=== PATIENT | male | born 1945 | race Caucasian/White ===

== ENCOUNTER 2017-09-19 07:50 | Inpatient (IN) | payer OTHER ==
[2017-09-19 08:47] VITALS: BMI 30.8
[2017-09-19] MEDS ORDERED: oxyCODONE HCL 10 MG SUSTAINED ACTING TABLET ONE (08:56)
[2017-09-19] MEDS ORDERED: CELECOXIB 200 MG CAPSULE ONE (08:57)
[2017-09-19] MEDS ORDERED: MIDAZOLAM HCL 2 MG/2 ML SINGLE DOSE VIAL ONE ×2 (09:36→11:27)
[2017-09-19] MEDS ORDERED: DEXAMETHASONE SOD PHOSPHATE/PF 10 MG/ML SDV ONE (09:36)
[2017-09-19] MEDS ORDERED: ROPIVACAINE HCL 0.5% 30ML VIAL ONE (09:37)
[2017-09-19] MEDS ORDERED: SODIUM CHLORIDE 0.9% P/F 10 ML VIAL IJ ONE (09:37)
[2017-09-19] MEDS ORDERED: PROPOFOL 20 ML ONE ×5 (10:26→13:47)
[2017-09-19] MEDS ORDERED: BUPIVACAINE HCL/PF 0.5% (5MG/ML) 10 ML VIAL ONE (10:27)
[2017-09-19] MEDS ORDERED: ceFAZolin SODIUM 1 GM VIAL ONE ×3 (13:35)
[2017-09-19] MEDS ORDERED: TRANEXAMIC ACID 1000 MG/10 ML VIAL ONE ×2 (13:46)
[2017-09-19] MEDS ORDERED: GUM MASTIC/STORAX/MSAL/ALCOHOL 1 DRP DROPSBTL MC ONE (13:52)
[2017-09-19] MEDS ORDERED: ONDANSETRON 4 MG/2 ML VIAL IVPUSH PRN (14:19)
[2017-09-19] MEDS ORDERED: MAG HYDROX/AL HYDROX/SIMETH 30 ML UNIT-DOSE CUP PO PRN (14:19)
[2017-09-19] MEDS ORDERED: MAGNESIUM HYDROX 2400MG/30ML ORAL SUSPENSION 30 ML CUP PO PRN (14:19)
[2017-09-19] MEDS ORDERED: LACTATED RINGERS SOLUTION 1,000 ML IV SCH (14:30)
[2017-09-19] MEDS ORDERED: ACETAMINOPHEN 325 MG TABLET (FP) ONE (15:06)
[2017-09-19] MEDS ORDERED: oxyCODONE HCL 5 MG TABLET ONE ×2 (15:34→19:41)
--- NOTE | 2017-09-19 16:57 | OP ---
Operative Note - Note: Operative Date: 09/19/17 Pre-Operative Diagnosis: Right knee DJD Operation: Right total knee replacement Implants: Shonda Triathlong Cemented CR. Femur - 3. Tibia - 4. Poly - 11mm ( CS). Patella - 27mm symmetric Post-Operative Diagnosis: Same as Pre-op Surgeon: Azam Richmond Utility System Repairer: Johnie Richmond Anesthesia: Spinal Operative Report Dictated: Yes
[2017-09-19] MEDS: CEFAZOLIN 2 GM/D5W 2 GM/50 ML ML IVPB SCH (18:06)
[2017-09-19] MEDS ORDERED: oxyCODONE HCL 5 MG TABLET PO PRN (19:55)
[2017-09-19] MEDS: oxyCODONE HCL 10 MG SUSTAINED ACTING TABLET PO SCH (21:36)
[2017-09-19] MEDS: SENNOSIDES/DOCUSATE COMBO (SENNA PLUS) TABLET (UD) PO SCH (21:37)
[2017-09-19] MEDS: ASPIRIN 325 MG TABLET PO SCH (21:50)
[2017-09-19] MEDS ORDERED: VANCOMYCIN 1,250 MG in DEXTROSE 5%-WATER - 250 ML IVPB ONE (22:00)
--- NOTE | 2017-09-20 00:01 | CONSULT ---
Consultation: REQUESTING PROVIDER: Dr. Richmond CONSULT REQUEST: We have been asked to medically evaluate this patient for ( Medical Management). HISTORY OF PRESENT ILLNESS: This is a 72 y/o man with a past medical history of HTN, DM, GERD, OA, BPH, Retinopathy. s/p R-TKR POD #0. Received at bedside AAOx3 who reports pain to R- knee 02/28. Patient reports having surgery for severe OA. Patient reports numbness to the medial aspect of his foot. Patient reports passing flatulence and voiding. Patient reports tolerating PO fluids and solids without N/V. Patient denies fever, chills, cough, SOB, CP, AP Past Medical History: See HPI Past Surgical History: Left Wrist ORIF Left Retina sx Cataract Removal REVIEW OF SYSTEMS: CONSTITUTIONAL: Absent: fever, chills, diaphoresis, generalized weakness, malaise, loss of appetite, weight change HEENT: Absent: rhinorrhea, nasal congestion, throat pain, throat swelling, difficulty swallowing, mouth swelling, ear pain, eye pain, visual changes CARDIOVASCULAR: Absent: chest pain, syncope, palpitations, irregular heart rate, lightheadedness , peripheral edema RESPIRATORY: Absent: cough, shortness of breath, dyspnea with exertion, orthopnea, wheezing, stridor, hemoptysis GASTROINTESTINAL: Absent: abdominal pain, abdominal distension, nausea, vomiting, diarrhea, constipation, melena, hematochezia GENITOURINARY: Absent: dysuria, frequency, urgency, hesitancy, hematuria, flank pain, genital pain MUSCULOSKELETAL: right knee pain Absent: myalgia, arthralgia, joint swelling, back pain, neck pain SKIN: Absent: rash, itching, pallor HEMATOLOGIC/IMMUNOLOGIC: Absent: easy bleeding, easy bruising, lymphadenopathy, frequent infections ENDOCRINE: Absent: unexplained weight gain, unexplained weight loss, heat intolerance, cold intolerance NEUROLOGIC: paresthesias Absent: headache, focal weakness, dizziness, unsteady gait, seizure, mental status changes, bladder or bowel incontinence PSYCHIATRIC: Absent: anxiety, depression, suicidal or homicidal ideation, hallucinations. PHYSICAL EXAMINATION Vital Signs - 24 hr 09/19/17 09/19/17 09/19/17 08:12 08:35 08:47 Temperature 98.5 F 98.5 F Pulse Rate 100 H 100 H Respiratory 19 19 Rate Blood Pressure 136/87 136/87 O2 Sat by Pulse 97 Oximetry (%) 09/19/17 09/19/17 09/19/17 14:25 14:30 14:35 Temperature 98 F Pulse Rate 79 80 85 Respiratory 16 18 18 Rate Blood Pressure 119/76 121/68 110/70 O2 Sat by Pulse 98 97 97 Oximetry (%) 09/19/17 09/19/17 09/19/17 14:40 14:55 15:10 Temperature 98 F Pulse Rate 86 86 86 Respiratory 18 18 20 Rate Blood Pressure 111/72 110/70 120/68 O2 Sat by Pulse 97 97 96 Oximetry (%) 09/19/17 09/19/17 09/19/17 15:25 15:34 17:43 Temperature 97.7 F Pulse Rate 86 86 70 Respiratory 20 20 18 Rate Blood Pressure 118/68 116/62 131/67 O2 Sat by Pulse 96 96 100 Oximetry (%) 09/19/17 09/19/17 20:12 22:00 Temperature 97.8 F Pulse Rate 74 Respiratory 18 18 Rate Blood Pressure 121/62 O2 Sat by Pulse 100 Oximetry (%) GENERAL: Obese, awake, alert, and fully oriented, in no acute distress. HEAD: Normal with no signs of trauma. EYES: Pupils equal, round and reactive to light, extraocular movements intact, sclera anicteric, conjunctiva clear. No lid lag. EARS, NOSE, THROAT: Ears normal, nares patent, oropharynx clear without exudates. Moist mucous membranes. NECK: Normal range of motion, supple without lymphadenopathy, JVD, or masses. LUNGS: Breath sounds equal, diminished to bases. No wheezes, and no crackles. No accessory muscle use. HEART: Regular rate and rhythm, normal S1 and S2 without murmur, rub or gallop. ABDOMEN: Soft, nontender, not distended, normoactive bowel sounds, no guarding, no rebound, no masses. No hepatomegaly or splenomegaly. MUSCULOSKELETAL: Normal range of motion at RUE, LUE, LLE joints. No bony deformities. No CVA tenderness. R-knee tenderness, +surgical dressing, dry and intact,+ icepack UPPER EXTREMITIES: 2+ pulses, warm, well-perfused. No cyanosis. No clubbing. Cap refill <2 seconds. No peripheral edema. LOWER EXTREMITIES: 2+ pulses, warm, well-perfused. No calf tenderness. No peripheral edema. NEUROLOGICAL: Cranial nerves II-XII intact. Normal speech. Gait not observed. + decreased sensation to R- Great toe/medial foot PSYCHIATRIC: Cooperative. Good eye contact. Appropriate mood and affect. SKIN: Warm, dry, normal turgor, no rashes or lesions noted. Laboratory Results - last 24 hr 09/19/17 09/19/17 08:25 14:28 POC Glucometer 146 135 Active Medications Generic Name Dose Route Start Last Admin Trade Name Freq PRN Reason Stop Dose Admin Al Hydroxide/Mg Hydroxide 30 ml 09/19/17 14:19 Mylanta Oral Suspension - PO Q4H PRN DYSPEPSIA Aspirin 325 mg 09/19/17 22:00 09/19/17 21:50 Asa - PO 325 mg BID JESÚS Administration Fentanyl 50 mcg 09/19/17 15:09 Sublimaze Injection - IVPUSH [id number] PRN PAIN Hydrochlorothiazide 12.5 mg 09/20/17 10:00 Hctz - PO DAILY JESÚS Cefazolin Sodium/Dextrose 2 gm in 50 mls @ 100 mls/hr 09/19/17 18:00 18:06 Ancef 2 Gm Premixed Ivpb - IVPB 09/20/17 02:29 100 mls/hr Q8H-IV JESÚS Administration Lactated Ringer's 1,000 mls @ 125 mls/hr 09/19/17 14:30 09/19/17 18:06 Lactated Ringers Solution IV 09/20/17 06:00 Not Given ASDIR JESÚS Magnesium Hydroxide 30 ml 09/19/17 14:19 Milk Of Magnesia - PO PRN PRN CONSTIPATION Multivitamins/Minerals/Vitamin C 1 tab 09/20/17 10:00 Tab-A-Vit - PO DAILY JESÚS Ondansetron HCl 4 mg 09/19/17 14:19 Zofran Injection IVPUSH Q6H PRN NAUSEA Oxycodone HCl 5 mg 09/19/17 19:55 Roxicodone - PO Q4H PRN Oxycodone HCl 10 mg 09/19/17 19:56 Roxicodone - PO Q4H PRN Oxycodone HCl 10 mg 09/19/17 22:00 09/19/17 21:36 Oxycontin - PO 10 mg BID JESÚS Administration Pantoprazole Sodium 40 mg 09/20/17 10:00 Protonix - PO DAILY JESÚS Senna/Docusate Sodium 2 tablet 09/19/17 22:00 09/19/17 21:37 Pericolace - PO 2 tablet BID JESÚS Administration Sitagliptin Phosphate 100 mg 09/20/17 07:00 Januvia - PO DAILY@0700 JESÚS Valsartan 320 mg 09/20/17 10:00 Diovan - PO DAILY [facility] ASSESSMENT/PLAN: This is a 72 y/o with a PMHx of: HTN, DM, COPD, GERD, OA, BPH. s/p R-TKR, POD #0 1. Continue with ortho regimen 2. PT 3. Incentive Spirometry 4. Monitor CBC, BMP in am 5. DM- BGMs, continue Januvia 6. HTN- monitor BP, continue Diovan, HCTZ, monitor renal function 7. COPD- O2 prn, Duoneb prn, Spo2 BID 8. GERD- Continue PPI 9. BPH- Continue Flomax 10.DVT/PPI Prophylaxis- Continue Asa, Protonix Dispo: We will continue to follow the patient. Thank you for this consultative opportunity. Problem List - Problems (1) Status post right knee replacement Code(s): Z96.651 - PRESENCE OF RIGHT ARTIFICIAL KNEE JOINT (2) Diabetes mellitus Code(s): E11.9 - TYPE 2 DIABETES MELLITUS WITHOUT COMPLICATIONS (3) HTN (hypertension) Code(s): I10 - ESSENTIAL (PRIMARY) HYPERTENSION (4) GERD (gastroesophageal reflux disease) Code(s): K21.9 - GASTRO-ESOPHAGEAL REFLUX DISEASE WITHOUT ESOPHAGITIS (5) BPH (benign prostatic hyperplasia) Code(s): N40.0 - BENIGN PROSTATIC HYPERPLASIA WITHOUT LOWER URINRY TRACT SYMP (6) Osteoarthritis Code(s): M19.90 - UNSPECIFIED OSTEOARTHRITIS, UNSPECIFIED SITE (7) DVT prophylaxis Code(s): JMX6252 - Visit type - Emergency Visit Emergency Visit: Yes ED Registration Date: 09/19/17 Care time: The patient presented to the Emergency Department on the above date and was hospitalized for further evaluation of their emergent condition. - New Patient This patient is new to me today: Yes Date on this admission: 09/19/17 - Critical Care Critical Care patient: No
[2017-09-20] MEDS: oxyCODONE HCL 5 MG TABLET PO PRN ×3 (02:21→16:42)
[2017-09-20] MEDS: CEFAZOLIN 2 GM/D5W 2 GM/50 ML ML IVPB SCH (02:23)
[2017-09-20] MEDS: sitaGLIPtin PHOSPHATE 50 MG TABLET PO SCH (06:13)
[2017-09-20 08:28] LABS: MCH 29.9 pg (25.7-33.7); MCHC 33.5 g/dl (32.0-35.9); MEAN PLT VOLUME 11.3 fl (7.5-11.1); PLATELET COUNT 168 K/MM3 (134-434); RDW 13.3 % (11.9-15.9); WHITE BLOOD COUNT 17.8 K/mm3 (4.0-10.8)
[2017-09-20 08:32] LABS: ANION GAP 8 (8-16); CALCIUM 8.8 mg/dl (8.4-10.2); CO2 29 mmol/L (22-28); GLUCOSE,RANDOM 186 mg/dl (74-106)
[2017-09-20] MEDS: ASPIRIN 325 MG TABLET PO SCH ×2 (09:08→21:12)
[2017-09-20] MEDS: MULTIVITAMINS (DAILY MVI) TABLET (FP) PO SCH (09:08)
[2017-09-20] MEDS: VALSARTAN 160 MG TABLET (UD) PO SCH (09:09)
[2017-09-20] MEDS: SENNOSIDES/DOCUSATE COMBO (SENNA PLUS) TABLET (UD) PO SCH ×2 (09:09→21:12)
[2017-09-20] MEDS: oxyCODONE HCL 10 MG SUSTAINED ACTING TABLET PO SCH ×2 (09:10→21:12)
[2017-09-20] MEDS: HYDROCHLOROTHIAZIDE 12.5 MG CAPSULE (FP) PO SCH (09:10)
[2017-09-20] MEDS: PANTOPRAZOLE 40 MG TABLET (FP) PO SCH (09:11)
[2017-09-20] MEDS ORDERED: sitaGLIPtin PHOSPHATE 100 MG TABLET (FP) PO SCH (10:00)
[2017-09-20] MEDS ORDERED: PATIENT'S OWN MEDICATION (NON-FORMULARY) (Valsartan/Hydrochlorothiazide [Valsartan-Hctz 32 PO SCH (10:00)
--- NOTE | 2017-09-20 10:33 | PN ---
Physical Exam: SUBJECTIVE: Patient seen and examined, ambulatory at bedside with walker, denies any chest pain or shortness of breath, reports minimal pain. OBJECTIVE: Patient is a 72 y/o man with a past medical history of HTN, DM, GERD , OA, BPH, Retinopathy. s/p R-TKR POD #1, Dr Richmond, spinal anesthesia Vital Signs Period Temp Pulse Resp BP Sys/Mariscal Pulse Ox Last 24 Hr 97.4 F-98 F 67-86 16-20 110-133/62-76 96-100 GENERAL: The patient is awake, alert, and fully oriented, in no acute distress. HEAD: Normal with no signs of trauma. EYES: PERRL, extraocular movements intact, sclera anicteric, conjunctiva clear. No ptosis. ENT: Ears normal, nares patent, oropharynx clear without exudates, moist mucous membranes. NECK: Trachea midline, full range of motion, supple. LUNGS: Breath sounds equal, clear to auscultation bilaterally, no wheezes, no crackles, no accessory muscle use. HEART: Regular rate and rhythm, S1, S2 without murmur, rub or gallop. ABDOMEN: Soft, nontender, nondistended, normoactive bowel sounds, no guarding, no rebound, no hepatosplenomegaly, no masses. EXTREMITIES: 2+ pulses, warm, well-perfused, no edema. RIGHT LOWER EXTREMITY: cdi, scd/trinity, less than 3 second capillary refill, + 3 pedal pulse NEUROLOGICAL: Cranial nerves II through XII grossly intact. Normal speech, gait not observed. PSYCH: Normal mood, normal affect. SKIN: Warm, dry, normal turgor, no rashes or lesions noted Laboratory Results - last 24 hr 09/19/17 09/20/17 09/20/17 14:28 06:16 07:00 WBC 17.8 H RBC 4.54 Hgb 13.6 Hct 40.4 MCV 89.0 MCH 29.9 MCHC 33.5 RDW 13.3 Plt Count 168 MPV 11.3 H Sodium Potassium Chloride Carbon Dioxide Anion Gap BUN Creatinine POC Glucometer 135 178 Random Glucose Calcium 09/20/17 07:00 WBC RBC Hgb Hct MCV MCH MCHC RDW Plt Count MPV Sodium 132 L Potassium 4.6 Chloride 95 L Carbon Dioxide 29 H Anion Gap 8 BUN 14 Creatinine 1.0 POC Glucometer Random Glucose 186 H Calcium 8.8 Active Medications Generic Name Dose Route Start Last Admin Trade Name Freq PRN Reason Stop Dose Admin Al Hydroxide/Mg Hydroxide 30 ml 09/19/17 14:19 Mylanta Oral Suspension - PO Q4H PRN DYSPEPSIA Aspirin 325 mg 09/19/17 22:00 09/20/17 09:08 Asa - PO 325 mg BID JESÚS Administration Fentanyl 50 mcg 09/19/17 15:09 Sublimaze Injection - IVPUSH [id number] PRN PAIN Hydrochlorothiazide 12.5 mg 09/20/17 10:00 09/20/17 09:10 Hctz - PO 12.5 mg DAILY JESÚS Administration Magnesium Hydroxide 30 ml 09/19/17 14:19 Milk Of Magnesia - PO PRN PRN CONSTIPATION Multivitamins/Minerals/Vitamin C 1 tab 09/20/17 10:00 09/20/17 09:08 Tab-A-Vit - PO 1 tab DAILY JESÚS Administration Non-Formulary Medication 500 mg 09/21/17 10:00 Metformin Hcl [Metformin Hcl Er] PO DAILY [facility] Ondansetron HCl 4 mg 09/19/17 14:19 Zofran Injection IVPUSH Q6H PRN NAUSEA Oxycodone HCl 5 mg 09/19/17 19:55 Roxicodone - PO Q4H PRN Oxycodone HCl 10 mg 09/19/17 19:56 09/20/17 06:14 Roxicodone - PO 10 mg Q4H PRN Administration Oxycodone HCl 10 mg 09/19/17 22:00 09/20/17 09:10 Oxycontin - PO 10 mg BID JESÚS Administration Pantoprazole Sodium 40 mg 09/20/17 10:00 09/20/17 09:11 Protonix - PO 40 mg DAILY JESÚS Administration Senna/Docusate Sodium 2 tablet 09/19/17 22:00 09/20/17 09:09 Pericolace - PO 2 tablet BID JESÚS Administration Sitagliptin Phosphate 100 mg 09/20/17 07:00 09/20/17 06:13 Januvia - PO 100 mg DAILY@0700 JESÚS Administration Valsartan 320 mg 09/20/17 10:00 09/20/17 09:09 Diovan - PO 320 mg DAILY JESÚS Administration ASSESSMENT/PLAN: 1. orth ms: s/p right tkr - PT daily - prn pain medication 2. endo niddm - januvia and metformin - fingersticks achs 3. cardiovascular hypertension - continue diovan/hctz, b/p at goal 4. pulm copd no acute excerbation at this time 5. gi gerd - continue ppi 6. gu bph - continue flomax,monitor for signs of urinary retention Dispo: We will continue to follow the patient. Thank you for this consultative opportunity. Visit type - Emergency Visit Emergency Visit: Yes ED Registration Date: 09/19/17 Care time: The patient presented to the Emergency Department on the above date and was hospitalized for further evaluation of their emergent condition. - New Patient This patient is new to me today: Yes Date on this admission: 09/20/17 - Critical Care Critical Care patient: No - Discharge Referral Referred to [facility] Med P.C.: No
--- NOTE | 2017-09-20 10:53 | PN ---
Progress Note (short form) - Note Progress Note: 72M POD1 s/p right TKR under spinal anesthetic with peripheral nerve blocks doing well. Pt states that pain is well controlled, reports no anesthetic complications. Sensory and motor function intact in bilateral lower extremities.
[2017-09-21] MEDS: sitaGLIPtin PHOSPHATE 50 MG TABLET PO SCH (06:31)
[2017-09-21 06:34] VITALS: BP 119/73; PULSE 91; TEMP 98.3
[2017-09-21 08:18] LABS: MCH 29.8 pg (25.7-33.7); MCHC 32.9 g/dl (32.0-35.9); MEAN CELL VOLUME 90.6 fl (80-96); MEAN PLT VOLUME 10.6 fl (7.5-11.1); PLATELET COUNT 154 K/MM3 (134-434); RDW 13.7 % (11.9-15.9); WHITE BLOOD COUNT 15.8 K/mm3 (4.0-10.8)
[2017-09-21] MEDS: VALSARTAN 160 MG TABLET (UD) PO SCH (09:28)
[2017-09-21] MEDS: HYDROCHLOROTHIAZIDE 12.5 MG CAPSULE (FP) PO SCH (09:28)
[2017-09-21] MEDS: MULTIVITAMINS (DAILY MVI) TABLET (FP) PO SCH (09:28)
[2017-09-21] MEDS: ASPIRIN 325 MG TABLET PO SCH (09:28)
[2017-09-21] MEDS: oxyCODONE HCL 10 MG SUSTAINED ACTING TABLET PO SCH (09:29)
[2017-09-21] MEDS: SENNOSIDES/DOCUSATE COMBO (SENNA PLUS) TABLET (UD) PO SCH (09:29)
[2017-09-21] MEDS: PANTOPRAZOLE 40 MG TABLET (FP) PO SCH (09:29)
[2017-09-21] MEDS ORDERED: metFORMIN HCL 500 MG TABLET (FP) PO SCH (10:00)
--- NOTE | 2017-09-21 12:18 | DS ---
Physical Exam: SUBJECTIVE: Patient seen and examined, reports feeling well, ambulatory throughout nursing station with walker, denies any chest pain, shortness of breath, or [facility] OBJECTIVE: patient is a 72 y/o man with a past medical history of HTN, DM, GERD , OA, BPH, Retinopathy. s/p R-TKR POD #3, Dr Richmond, spinal anesthesia. Vital Signs Temperature 98.3 F 09/21/17 06:00 Pulse Rate 91 H 09/21/17 06:00 Respiratory Rate 16 09/21/17 08:51 Blood Pressure 119/73 09/21/17 06:00 O2 Sat by Pulse Oximetry (%) 96 09/21/17 08:51 PHYSICAL EXAM GENERAL: The patient is awake, alert, and fully oriented, in no acute distress. HEAD: Normal with no signs of trauma. EYES: PERRL, extraocular movements intact, sclera anicteric, conjunctiva clear. ENT: Ears normal, nares patent, oropharynx clear without exudates, moist mucous membranes. NECK: Trachea midline, full range of motion, supple. LUNGS: Breath sounds equal, clear to auscultation bilaterally, no wheezes, no crackles, no accessory muscle use. HEART: Regular rate and rhythm, S1, S2 without murmur, rub or gallop. ABDOMEN: Soft, nontender, nondistended, normoactive bowel sounds, no guarding, no rebound, no hepatosplenomegaly, no masses. EXTREMITIES: 2+ pulses, warm, well-perfused, no edema. RIGHT LOWER EXTREMITY: aguacel dressing intact, scant dried blood noted, + 3 pedal pulse, less than 3 second capillary refill NEUROLOGICAL: Cranial nerves II through XII grossly intact. Normal speech, gait not observed. PSYCH: Normal mood, normal affect. SKIN: Warm, dry, normal turgor, no rashes or lesions noted. LABS CBC,CMP WBC 15.8 K/mm3 (4.0-10.8) H 09/21/17 07:00 RBC 4.21 M/mm3 (4.00-5.60) 09/21/17 07:00 Hgb 12.6 GM/dl (11.7-16.9) 09/21/17 07:00 Hct 38.2 % (35.4-49) 09/21/17 07:00 MCV 90.6 fl (80-96) 09/21/17 07:00 MCH 29.8 pg (25.7-33.7) 09/21/17 07:00 MCHC 32.9 g/dl (32.0-35.9) 09/21/17 07:00 RDW 13.7 % (11.9-15.9) 09/21/17 07:00 Plt Count 154 K/MM3 (134-434) 09/21/17 07:00 MPV 10.6 fl (7.5-11.1) 09/21/17 07:00 Sodium 132 mmol/L (136-145) L 09/20/17 07:00 Potassium 4.6 mmol/L (3.5-5.1) 09/20/17 07:00 Chloride 95 mmol/L (98-107) L 09/20/17 07:00 Carbon Dioxide 29 mmol/L (22-28) H 09/20/17 07:00 Anion Gap 8 (8-16) 09/20/17 07:00 BUN 14 mg/dl (7-18) 09/20/17 07:00 Creatinine 1.0 mg/dl (0.6-1.3) 09/20/17 07:00 POC Glucometer 155 UNITS (80-120) 09/21/17 06:30 Random Glucose 186 mg/dl (74-106) H 09/20/17 07:00 Calcium 8.8 mg/dl (8.4-10.2) 09/20/17 07:00 HOSPITAL COURSE: The patient was admitted to the Med-Surg Unit after an elective right total knee replacement, 09/19/17, Dr Richmond, spinal anesthesia. Patient ambulated the [facility] with assistance of post operative day 1. Narcotic and non-narcotic pain management control was achieved with an oral and IV approach. POD #1. Nicole- operative IV ABX were administered. DVT prophylaxis was achieved with SCDs and early ambulation. The patient ambulated with Physical Therapy and will be discharged with physical therapy at home. Narcotic scripts was checked with [employer] prior to escibe. The discharge instructions and an oral pain management plan were reviewed with the patient. All questions answered. Above plan discussed with Dr. Richmond and agreed. Date of Admission:09/19/17 Date of Discharge: 09/21/17
[2017-09-21] MEDS: oxyCODONE HCL 5 MG TABLET PO PRN (13:42)
--- NOTE | 2017-09-24 15:46 | PATH ---
Surgical Pathology Report Patient Name: ROMELIA MCMILLAN Med. Rec. #: [id number] /Age/Gender: 1945 (Age: 72) / M Account: [id number] Location: [facility] MED-SURG Taken: 09/19/2017 Received: 09/19/2017 Reported: 09/24/2017 Physicians: Azam Richmond M.D. Specimen(s) Received BONE RIGHT KNEE Clinical History Right knee osteoarthritis Final Diagnosis BONE AND SOFT TISSUE, RIGHT KNEE, REPLACEMENT: DEGENERATIVE JOINT DISEASE. Electronically Signed Trevor Telles M.D. Gross Description Received in formalin labeled "bone right knee," is a 12.0 x 11.0 x 2.0 cm in aggregate olivares, irregular portions of bone and soft tissue. The tibial plateau measures 7.2 x 4.8 x 1.5 cm. There are no areas of eburnation identified. The articular surfaces are olivares-yellow and focally granular. The underlying trabecular bone is yellow and hard. Licensing Engineer sections are submitted in one cassette, following decalcification. 09/20/201709/20/2017
== END 2017-09-21 14:15 | disposition home health service (06) | DRG 470 ==
LOC: FM/S 07:50 → EDSTATUS 13:15 → FM/S 15:45
PROVIDERS: ADMIT Orthopaedic Surgery Adult Reconstructive Orthopaedic Surgery; ATTEND Orthopaedic Surgery Adult Reconstructive Orthopaedic Surgery
PROC: 0SRC0J9 Replacement of Right Knee Joint with Synthetic Substitute, Cemented, Open Approach (ICD-10-PCS; principal; 2017-09-19 11:22)
DX: M17.11 Unilateral primary osteoarthritis, right knee (principal); I10 Essential (primary) hypertension; K21.9 Gastro-esophageal reflux disease without esophagitis; N40.0 Benign prostatic hyperplasia without lower urinary tract symptoms; E11.319 Type 2 diabetes mellitus with unspecified diabetic retinopathy without macular edema; Z79.84 Long term (current) use of oral hypoglycemic drugs; J44.9 Chronic obstructive pulmonary disease, unspecified
CPT/HCPCS: 36415; 71020-TC; 73560-TC-RT; 73700-TC-RT; 80048; 85027; 88304-TC; 88311-TC; 94010; 94760; 97116-GP; 97162-GP